=== PATIENT | male | born 1995 | race Caucasian/White ===

== ENCOUNTER 2018-01-06 20:00 | Emergency (ER) | payer OTHER ==
[~2018-01-06] VITALS: Ht 172.7 cm; Wt 81.6 kg
[2018-01-06 20:15] VITALS: BP 115/75
--- NOTE | 2018-01-06 20:38 | NUR ---
PT TAKEN TO BED 10
--- NOTE | 2018-01-06 20:40 | NUR ---
PT IS A 23 Y/O MALE CAME IN W/C/O LOWER BACK PAIN. PT STATES, "I WAS LIFTING AND SOMETHING JUST PULLED IN MY BACK." PT STATES THE PAIN IS 2/10 WHEN HE IS SITTING BUT GOES UP TO AM 8/10 WHEN HE MOVES. PT STATES THE PAIN IS AN ACHING FEELING, WITH NO RADITION. PT DENIES TRUAMA, N/V/D. AAOX4, RR EVEN/UNLAOBORED. PT DENIES PAST MEDICAL HISTORY, NO ALLERGIES TO MEDICATIONS
[2018-01-06 21:20] VITALS: BP 120/68
--- NOTE | 2018-01-06 21:20 | NUR ---
Patient discharged with v/s stable. Written and verbal after care instructions given and explained. Patient alert, oriented and verbalized understanding of instructions. Ambulatory with steady gait. All questions addressed prior to discharge. ID band removed. Patient advised to follow up with PMD. Rx of TRAMADOL 50MG AND MOTRIN 800MG given. Patient educated on indication of medication including possible reaction and side effects. Opportunity to ask questions provided and answered.
== END 2018-01-06 21:02 | disposition home or self-care (01) ==
LOC: MED 20:00
DX: S39.012A Strain of muscle, fascia and tendon of lower back, initial encounter (principal); X58.XXXA Exposure to other specified factors, initial encounter; Y93.43 Activity, gymnastics; Y92.89 Other specified places as the place of occurrence of the external cause; Y99.8 Other external cause status
CPT/HCPCS: 99283

== ENCOUNTER 2019-07-13 08:06 | Emergency (ER) | payer OTHER ==
[~2019-07-13] VITALS: Ht 170.2 cm; Wt 81.6 kg
[2019-07-13 08:10] VITALS: BP 154/95
--- NOTE | 2019-07-13 08:10 | NUR ---
PATIENT AMBULATED TO BED 4 AT THIS TIME.
--- NOTE | 2019-07-13 08:50 | NUR ---
C/O NON RADIATING L FLANK PAIN 04/19 X2 DAYS. PT DENIES N/V/FEVER/DYSURIA/ABD PAIN. PT STATES THE PAIN IS EXACERBATED ON INHALATION. PT STATES HE WAS WRESTLING AND MAY HAVE HURT HIMSELF SOMEHOW. BED IN LOW POSITION, SIDE RAIL UP X1.
--- NOTE | 2019-07-13 08:50 | NUR ---
DR. NATHAN AT BEDSIDE
[2019-07-13 10:09] VITALS: BP 140/90
== END 2019-07-13 10:08 | disposition home or self-care (01) ==
LOC: MED 08:06
DX: S39.012A Strain of muscle, fascia and tendon of lower back, initial encounter (principal); X58.XXXA Exposure to other specified factors, initial encounter; Y93.89 Activity, other specified; Y92.89 Other specified places as the place of occurrence of the external cause; Y99.8 Other external cause status
CPT/HCPCS: 71046; 81002; 99283

== ENCOUNTER 2020-10-12 02:35 | Emergency (ER) | payer SELFPAY ==
[~2020-10-12] VITALS: Ht 172.7 cm; Wt 81.6 kg
[2020-10-12 02:36] VITALS: BP 126/75
--- NOTE | 2020-10-12 02:40 | NUR ---
TO BED # 04 AMBULATORY
--- NOTE | 2020-10-12 02:45 | NUR ---
25 Y/O MALE C/O HICCUPS X 2 DAYS. PT STATES HE IS HAVING TROUBLE FALLING ASLEEP DUE TO CONSTANT HICCUPS. NO OBSERVED HICCUPS AT THIS TIME. PT STATES THEY STOPPED RIGHT BEFORE HE WAS BROUGHT BACK TO THE ER BED. PT STATES HE WAS SEEN AT [facility] FOR HIS [facility] X 3 DAYS AGO AND GIVEN AN AX SHOT. PT STATES HE IS NOT SURE IF HE GOT THE HICCUPS FROM THAT. PT DENIES FEVER, BODY ACHES, SOB , CP AT THIS TIME. A/O X 4 , RR EVEN AND UNLABORED. PT SITTING UP IN BED, LOCKED AND IN LOWEST POSITION ,HOB ELEVATED, SIDE RAIL X1. ERMD MADE AWARE OF PT STATUS. PMH: DENIES NKA
--- NOTE | 2020-10-12 03:00 | NUR ---
XRAY AT BEDSIDE.
--- NOTE | 2020-10-12 03:26 | NUR ---
ERMD AT BEDSIDE .
[2020-10-12 03:35] VITALS: BP 126/75
--- NOTE | 2020-10-12 03:35 | NUR ---
Patient discharged with v/s stable. Written and verbal after care instructions given and explained. Patient alert, oriented and verbalized understanding of instructions. Ambulatory with steady gait. All questions addressed prior to discharge. ID band removed. Patient advised to follow up with PMD. Rx of THORAZINE given. Patient educated on indication of medication including possible reaction and side effects. Opportunity to ask questions provided and answered.
== END 2020-10-12 03:35 | disposition home or self-care (01) ==
LOC: MED 02:35
DX: R06.6 Hiccough (principal); R03.0 Elevated blood-pressure reading, without diagnosis of hypertension
CPT/HCPCS: 71045; 99283